=== PATIENT | male | born 1940 | race Caucasian/White ===

== ENCOUNTER 2017-11-05 16:15 | Outpatient (CLI) | payer OTHER ==
[~2017-11-05 16:15] MED LIST: CRESTOR10 MG PO; CRESTOR5 MG PO; DIOVAN320 MG PO
== END 2017-11-05 16:16 | disposition home or self-care (01) ==
LOC: LAB 16:15
DX: D68.318 Other hemorrhagic disorder due to intrinsic circulating anticoagulants, antibodies, or inhibitors (principal)

== ENCOUNTER 2017-12-09 06:35 | Outpatient (CLI) | payer OTHER | END 2017-12-09 06:43 | disposition home or self-care (01) | LOC: LAB 06:35 | DX: H53.9 Unspecified visual disturbance (principal); D68.318 Other hemorrhagic disorder due to intrinsic circulating anticoagulants, antibodies, or inhibitors ==

== ENCOUNTER 2018-04-14 07:17 | Outpatient (CLI) | payer OTHER | END 2018-04-14 07:21 | disposition home or self-care (01) | LOC: LAB 07:17 | DX: D64.89 Other specified anemias (principal); E55.9 Vitamin D deficiency, unspecified; E78.4 Other hyperlipidemia ==